=== PATIENT | female | born 1975 | race Caucasian/White ===

== ENCOUNTER → 2017-07-07 | Outpatient (CLI) | payer SELFPAY | LOC: COL.CARD 07:57 | DX: I49.9 Cardiac arrhythmia, unspecified (principal) ==

== ENCOUNTER → 2018-01-20 | Outpatient (CLI) | payer SELFPAY ==
[2018-01-20 11:59] LABS: HEMATOCRIT 41.3 % (37.0-47.0); HEMOGLOBIN 13.2 g/dl (12.5-16.0); MEAN CELL VOLUME 86 fl (80.0-100.0); MEAN CORPUSCULAR HEMOGLOBIN 27 pg (27.0-31.0); MEAN CORPUSCULAR HGB CONC 32 g/dl (33.0-37.0); MEAN PLATELET VOLUME 9.3 fl (7.4-10.4); PLATELET COUNT 223 K/mm3 (130-400); RED BLOOD COUNT 4.81 M/mm3 (4.10-5.30); REDCELL DISTRIBUTION WIDTH-CV 12.8 % (11.5-14.5)
[2018-01-20 12:10] LABS: ALBUMIN 4.1 gm/dL (3.5-5.0); BILIRUBIN,TOTAL 0.5 mg/dL (0.0-1.0); CALCIUM 9.1 mg/dL (8.4-10.2); CHOLESTEROL RISK RATIO 3.2; CREATININE, serum 0.53 mg/dL (0.52-1.25); POTASSIUM 4.2 mmol/L (3.4-5.0); TOTAL PROTEIN 7.8 gm/dL (6.4-8.2)
[2018-01-20 12:40] LABS: THYROID STIMULATING HORMONE 1.03 uIU/mL (0.465-4.680)
== END ==
LOC: COL.LAB 10:05
DX: R20.8 Other disturbances of skin sensation (principal); R20.2 Paresthesia of skin

== ENCOUNTER 2018-03-20 09:23 | Emergency (ER) | payer SELFPAY ==
[~2018-03-20] VITALS: Ht 160 cm; Wt 63.2 kg
[2018-03-20 09:26] VITALS: BP 133/60; TEMP 98.4
[2018-03-20] MEDS ORDERED: PREDNISONE1 MG (09:33)
[2018-03-20] MEDS ORDERED: FLEXERIL 1010 MG/TAB PO (09:33)
[2018-03-20 10:45] VITALS: PULSE 84
== END 2018-03-20 10:46 | disposition home or self-care (01) ==
LOC: COL.ER 09:23
DX: S05.11XA Contusion of eyeball and orbital tissues, right eye, initial encounter (principal); R51 Headache; M79.7 Fibromyalgia; X58.XXXA Exposure to other specified factors, initial encounter

== ENCOUNTER → 2018-04-28 | Outpatient (CLI) | payer OTHER ==
[~2018-04-28] MED LIST: FLEXERIL 1010 MG/TAB PO; PREDNISONE1 MG
== END ==
LOC: MC.RAD 10:00
DX: Z12.31 Encounter for screening mammogram for malignant neoplasm of breast (principal); N64.59 Other signs and symptoms in breast; Z98.82 Breast implant status; Z90.11 Acquired absence of right breast and nipple

== ENCOUNTER → 2019-09-07 | Outpatient (CLI) | payer OTHER | LOC: COL.LAB 11:22 | DX: M79.604 Pain in right leg (principal) ==

== ENCOUNTER → 2019-09-08 | Outpatient (CLI) | payer OTHER | LOC: COL.VAS 10:26 | DX: M79.89 Other specified soft tissue disorders (principal); R79.1 Abnormal coagulation profile ==

== ENCOUNTER 2019-12-30 11:57 | Emergency (ER) | payer OTHER ==
[~2019-12-30] VITALS: Ht 160 cm; Wt 61.4 kg
[2019-12-30 12:02] VITALS: BP 168/70; PULSE 106; TEMP 98.6
== END 2019-12-30 13:45 | disposition home or self-care (01) ==
LOC: COL.ER 11:57
DX: R51 Headache (principal)
CPT/HCPCS: J1200; J1885; J7030

== ENCOUNTER → 2020-03-15 | Outpatient (CLI) | payer OTHER | LOC: COL.RAD 14:30 | DX: R10.32 Left lower quadrant pain (principal); R10.819 Abdominal tenderness, unspecified site ==

== ENCOUNTER 2020-11-14 06:02 | Emergency (ER) | payer OTHER ==
[~2020-11-14] VITALS: Ht 157.5 cm; Wt 70.5 kg
[2020-11-14 06:47] LABS: BASO % 0.2 % (0.0-2.0); EOS % 0.2 % (0-4.0); GRAN # 4.4 (1.4-6.5); GRAN % 82.1 % (42.2-75.2); HEMATOCRIT 38.8 % (37.0-47.0); HEMOGLOBIN 12.1 g/dl (12.5-16.0); LYMPH # 0.7 (1.2-3.4); LYMPH % 13.6 % (20.0-51.0); MEAN CELL VOLUME 85 fl (80.0-100.0); MEAN CORPUSCULAR HEMOGLOBIN 27 pg (27.0-31.0); MEAN CORPUSCULAR HGB CONC 31 g/dl (33.0-37.0); MONO # 0.2 (0.1-0.6); MONO % 3.7 % (1.7-9.3); PLATELET COUNT 207 K/mm3 (130-400); RED BLOOD COUNT 4.57 M/mm3 (4.10-5.30); REDCELL DISTRIBUTION WIDTH-CV 14.5 % (11.5-14.5)
[2020-11-14 06:52] LABS: ALBUMIN 4.2 gm/dL (3.5-5.0); BILIRUBIN,TOTAL 0.4 mg/dL (0.0-1.0); CALCIUM 8.8 mg/dL (8.4-10.2); CREATININE, serum 0.49 (0.52-1.25); POTASSIUM 3.8 mmol/L (3.4-5.0); TOTAL PROTEIN 7.9 gm/dL (6.4-8.2)
[2020-11-14] MEDS ORDERED: PRILOSEC10 MG PO ×2 (07:04→07:05)
[2020-11-14] MEDS ORDERED: ATIVAN 1MG T1 MG/TAB (07:11)
[2020-11-14] MEDS ORDERED: DESYREL 50MG50 MG PO (07:12)
[2020-11-14] MEDS ORDERED: NEURONTIN100 MG/CAP PO (07:12)
[2020-11-14] MEDS ORDERED: ZOFRAN ODT4 MG PO (07:37)
[2020-11-14 07:51] VITALS: BP 111/60; PULSE 94; TEMP 98.1
== END 2020-11-14 07:51 | disposition home or self-care (01) ==
LOC: COL.ER 06:02
PROVIDERS: Emergency Medicine
DX: K29.70 Gastritis, unspecified, without bleeding (principal); M79.7 Fibromyalgia; F32.9 Major depressive disorder, single episode, unspecified; F41.9 Anxiety disorder, unspecified
CPT/HCPCS: J2405; J2550; J7120

== ENCOUNTER → 2020-12-11 | Outpatient (CLI) | payer OTHER ==
[~2020-12-11] MED LIST changes: +ATIVAN 1MG T1 MG/TAB; +DESYREL 50MG50 MG PO; +NEURONTIN100 MG/CAP PO; +PRILOSEC10 MG PO; +ZOFRAN ODT4 MG PO
== END ==
LOC: COL.RAD 09:31
DX: M47.22 Other spondylosis with radiculopathy, cervical region (principal); M54.5 Low back pain

== ENCOUNTER → 2021-07-15 | Outpatient (CLI) | payer OTHER | LOC: COL.RAD 13:41 | DX: G43.009 Migraine without aura, not intractable, without status migrainosus (principal); G44.86 Cervicogenic headache | CPT/HCPCS: A9585 ==

== ENCOUNTER 2021-08-20 08:20 | Emergency (ER) | payer OTHER ==
[~2021-08-20] VITALS: Ht 157.5 cm; Wt 58.2 kg
[2021-08-20 08:28] VITALS: TEMP 98.8
[2021-08-20 09:20] VITALS: BP 128/61; PULSE 80
[2021-08-20] MEDS ORDERED: ZOFRAN ODT4 MG PO (09:20)
== END 2021-08-20 09:26 | disposition home or self-care (01) ==
LOC: COL.ER 08:20
DX: B34.9 Viral infection, unspecified (principal); M79.7 Fibromyalgia; Z79.899 Other long term (current) drug therapy; Z20.822 Contact with and (suspected) exposure to COVID-19

== ENCOUNTER 2022-04-10 14:45 | Emergency (ER) | payer OTHER ==
[~2022-04-10] VITALS: Ht 162.6 cm; Wt 61.4 kg
[2022-04-10 14:54] VITALS: TEMP 97.7
[2022-04-10 15:40] LABS: COLLECTION METHOD CLEAN CATCH
[2022-04-10 15:46] LABS: BASO % 0.3 % (0.0-2.0); EOS # 0.1 K/mm3 (0.0-0.7); EOS % 1.7 % (0.0-4.0); GRAN % 60.7 % (42.2-75.2); HEMATOCRIT 38.3 % (37.0-47.0); HEMOGLOBIN 12.3 g/dl (12.5-16.0); LYMPH % 30.4 % (20.0-51.0); MEAN CELL VOLUME 83 fl (80.0-100.0); MEAN CORPUSCULAR HEMOGLOBIN 27 pg (27-31); MEAN CORPUSCULAR HGB CONC 32 g/dl (33.0-37.0); MEAN PLATELET VOLUME 9.5 fl (7.4-10.4); MONO # 0.4 K/mm3 (0.1-0.6); MONO % 6.7 % (1.7-9.3); PLATELET COUNT 234 K/mm3 (130-400); RED BLOOD COUNT 4.64 M/mm3 (4.10-5.30); REDCELL DISTRIBUTION WIDTH-CV 13.9 % (11.5-14.5)
[2022-04-10 15:48] LABS: URINE APPEARANCE Turbid (CLEAR/HAZY); URINE COLOR Red (YELLOW)
[2022-04-10 15:49] LABS: URINE GLUCOSE Negative (NEGATIVE); URINE KETONE 1+ (NEGATIVE); URINE PROTEIN(semi-quant) 2+ (NEGATIVE)
[2022-04-10 15:50] LABS: URINE BLOOD 3+ (NEGATIVE); URINE NITRATE Negative (NEGATIVE); URINE UROBILINOGEN 0.2 E.U/dL (0.2-1.0)
[2022-04-10 15:54] LABS: MUCOUS Present (NOT PRESENT); SQUAMOUS EPITHELIAL None Seen /hpf (0-10); URINE BACTERIA None Seen /hpf (NONE SEEN); URINE RBC >50 /hpf (0-2)
[2022-04-10 16:05] LABS: ALBUMIN 3.8 gm/dL (3.5-5.0); BILIRUBIN,TOTAL 0.2 mg/dL (0.2-1.2); CALCIUM 9.1 mg/dL (8.4-10.2); CREATININE, serum 0.75 mg/dL (0.57-1.11); POTASSIUM 3.5 mmol/L (3.5-4.5); TOTAL PROTEIN 7.5 gm/dL (6.2-8.1)
[2022-04-10 17:09] VITALS: BP 109/57; PULSE 87
== END 2022-04-10 17:09 | disposition home or self-care (01) ==
LOC: COL.ER 14:45
PROVIDERS: Physician Assistant
DX: N93.9 Abnormal uterine and vaginal bleeding, unspecified (principal)

== ENCOUNTER → 2022-09-24 | Outpatient (CLI) | payer SELFPAY | LOC: COL.RAD 09:00 | DX: M47.22 Other spondylosis with radiculopathy, cervical region (principal); M48.02 Spinal stenosis, cervical region ==

== ENCOUNTER 2023-07-17 11:21 | Emergency (ER) | payer SELFPAY ==
[~2023-07-17] VITALS: Ht 157.5 cm; Wt 70.5 kg
[2023-07-17 11:27] VITALS: BP 122/58; TEMP 98.3
[2023-07-17] MEDS ORDERED: COLCRYS0.6 MG PO (11:58)
[2023-07-17 12:17] VITALS: PULSE 84
== END 2023-07-17 12:21 | disposition home or self-care (01) ==
LOC: COL.ER 11:21
DX: M79.674 Pain in right toe(s) (principal)
CPT/HCPCS: J1885